=== PATIENT | male | born 1960 | race Caucasian/White ===

== ENCOUNTER 2017-05-18 13:32 | Observation (INO) ==
[2017-05-18] MEDS ORDERED: HYDROmorphone HCL 1 MG/ML DISP.SYRIN IV ONE ×3 (13:37→16:58)
[2017-05-18] MEDS ORDERED: RINGER'S SOLUTION,LACTATED 1,000 ML IV ONE (13:37)
[2017-05-18] MEDS ORDERED: ONDANSETRON HCL/PF 2 MG/ML VIAL IV ONE (13:37)
[2017-05-18] MEDS ORDERED: HYDROmorphone HCL 2 MG/ML VIAL ONE ×2 (13:40→17:02)
[2017-05-18] MEDS ORDERED: ONDANSETRON HCL/PF 2 MG/ML VIAL ONE (13:40)
[2017-05-18 13:52] LABS: Hematocrit 43.9 % (42.0-52.0); Mean Cell Volume 89.6 fl (78-100); Mean Corpuscular Hemoglobin 30.6 pg (27-31); Mean Corpuscular Hgb Conc 34.2 g/dl (32-36); Mean Platelet Volume 9.2 fl (6.0-9.5); Neutrophil # 4.2 K/mm3 (1.3-6.0); Neutrophil % 50.3 % (42-75.0); Platelet Count 255 K/mm3 (150-450); Red Cell Distribution Width 14.6 % (11.5-14.0); White Blood Count 8.4 K/mm3 (4.0-10.5)
[2017-05-18 14:04] LABS: Albumin * 4.2 gm/dl (3.4-5.0); Anion Gap 18.6 mmol/L (6.8-13.8); BUN/Creatinine Ratio 13.6 (9.0-21.6); Bilirubin, Total 0.5 mg/dL (0.0-1.1); Ca. Corrected For Albumin 9.2 mg/dL (8.4-10.2); Calcium * 9.7 mg/dL (7.9-10.9); Carbon Dioxide 21.9 mmol/L (24-32.6); Potassium 3.5 mmol/L (3.4-4.6); Total Protein 8.1 gm/dL (6.2-8.2)
[2017-05-18] MEDS ORDERED: KETOROLAC TROMETHAMINE 30 MG/ML VIAL IV ONE (14:16)
[2017-05-18] MEDS ORDERED: KETOROLAC TROMETHAMINE 30 MG/ML VIAL ONE (14:28)
[2017-05-18 15:19] LABS: Urine Bilirubin Negative (NEGATIVE); Urine Ketone 15 mg/dL (NEGATIVE); Urine Nitrite Negative (NEGATIVE); Urine Protein Negative (NEGATIVE); Urine Specific Gravity 1.015 SP.GR. (1.005-1.030); Urine Urobilinogen Normal (NORMAL)
[2017-05-18 15:34] LABS: Urine Appearance Clear (CLEAR); Urine Bacteria TRACE; Urine Blood 5 /ul (NEGATIVE); Urine Color Yellow; Urine RBC TRACE /hpf (0-5); Urine WBC None Seen /hpf (0-5)
--- NOTE | 2017-05-18 15:42 | ERNOTE ---
Abdominal HPI - Narrative Date of Service: 05/18/17 - General Chief Complaint: Abdominal Pain Time Seen by Provider: 05/18/17 13:36 Source: patient, RN notes reviewed Exam Limitations: clinical condition - Immun/Allergies/Home Medications Immunizatons: IMMUNIZATION HX History of Influenza Vaccine Yes Hx Pneumococcal Vaccination Yes Allergies/Adverse Reactions: Allergies Penicillins Allergy (Severe, Verified 05/18/17 13:42) latex Allergy (Verified 05/18/17 13:43) Hives Home Medications: HOME MEDICATIONS Aspirin [Aspir 81] 81 mg PO DAILY 03/18/12 [Last Taken 05/17/17 21:00] Metoprolol Succinate 50 mg PO DAILY 03/18/12 [Last Taken 05/17/17 21:00] Multivitamin [Multivitamins] 1 each PO DAILY 03/18/12 [Last Taken 05/17/17 21:00 ] Simvastatin [Zocor] 20 mg PO HS 03/18/12 [Last Taken 05/17/17 21:00] Pantoprazole Sodium [Protonix] 40 mg PO DAILY 04/06/14 [Last Taken 05/17/17 21: 00] Felodipine [Felodipine ER] 50 mg PO DAILY 02/23/15 [Last Taken 05/17/17 21:00] Amitriptyline HCl [Elavil] 25 mg PO HS 05/18/17 [Last Taken 05/17/17 21:00] Fluticasone Propionate [Flovent Diskus] 50 mcg IH DAILY 05/18/17 [Last Taken 21:00] lamoTRIgine [Lamictal] 100 mg PO DAILY 05/18/17 [Last Taken 05/17/17 21:00] - History of Present Illness Narrative: Faheem is a 57 year old male brought to the ED by ambulance for left flank pain that began approximately an hour ago. He had just had a bowel movement, when he abruptly began having pain. He attempted to drive himself here, but had to fur puller and call an ambulance. He was well prior to the onset of the pain and denies having anything similar to this in the past. He believes he has a kidney stone. He also reports feeling bloated and nauseous. He denies dysuria or hematuria. He has no prior history of renal calculi. He reports that his stool was hard today, and that he has been constipated for a few days. Date (Duration): 05/18/17 Time (Timing): 12:30 Timing: constant, getting worse Quality: severe Modifying Factors - (Improves): Absent: defecating, rest, lying down, sitting up , urinating Modifying Factors - (Worsens): Present: sitting up, movement Prior Abdominal Problems: Absent: recent trauma, similar symptoms Review of Systems - Review of Systems Constitutional: Absent: recent illness, fever, chills EYE: Present: no symptoms reported ENT: Present: no symptoms reported Respiratory: Absent: shortness of breath, cough Cardiology: Absent: chest pain, syncope, edema Gastrointestinal/Abdominal: Present: nausea, constipation. Absent: vomiting, diarrhea, abdominal pain Genitourinary: Absent: frequency, dysuria, hematuria, decreased urinary output Musculoskeletal: Present: back pain. Absent: joint pain Skin: Absent: rash, lesions Neurological: Absent: weakness, numbness, tingling Endocrine: Present: no symptoms reported Hematologic/Lymphatic: Absent: easy bruising, easy bleeding Psych: Absent: anxiety, depressed - Patient's Past Medical History Patient History - Medical: Depression, GERD, Obesity Patient History - Cardiac/Respiratory: Hypertension, Hyperlipidemia, CPAP/BiPAP Home Use, Sleep Apnea Patient History - Cancer: No Hx of Cancer Patient History - Surgical Procedures: Colonoscopy, EGD, Hernia Repair Patient History - Other: None - Family History Mother Family History - Medical: History Unknown Father Family History - Medical: History Unknown - Social History Living Situations: home Abuse History: No History of abuse Psych History: Hx of Depression, Current tx/ever been on anti-depressants or anti-anxiety meds Smoking Status: Never smoker Alcohol Use: none Drug Use: none - Immunizations Hx Pneumococcal Vaccination: Yes History of Influenza Vaccine: Yes Physical Exam - Physical Exam General Appearance: Present: alert, severe distress, obese Head Exam: Present: normal inspection, no evidence of injury Eye Exam: Normal inspection: bilateral Neck: Present: normal inspection, nontender, supple Respiratory: Present: no respiratory distress, normal breath sounds, no accessory muscle use, lungs clear Cardiovascular/Chest: Present: regular rate, rhythm, no murmur, normal peripheral pulses Gastrointestinal/Abdominal: Present: normal bowel sounds, nontender, distended - firm, obese. Absent: guarding, rebound, mass Back Exam: Present: CVA tenderness (L) - severe. Absent: CVA tenderness (R) Extremity Exam: Present: normal inspection, no edema Neurological Exam: Present: alert, oriented, normal mood/affect, no motor/ sensory deficits Skin Exam: Present: normal color, diaphoresis ED Progress - Results and Orders Patient's Lab Results:: I have reviewed the patient's lab results. - Vital Signs Patient's Vital Signs:: I have reviewed the patient's vital signs. Vital Signs: Vital Signs 05/18/17 05/18/17 05/18/17 13:37 13:40 14:22 Temperature 37.3 C 37.3 C Pulse Rate 75 75 68 Respiratory 19 19 11 L Rate Blood Pressure 180/104 180/104 172/100 O2 Sat by Pulse 100 100 93 Oximetry - X-Ray X-Ray #1 X-Ray: abdomen Interpretation: Reviewed by me X-ray Comments: Nonobstructive bowel gas pattern, no free air - CT/Ultrasound CT/Ultrasound Narrative: Stone protocol CT: IMPRESSION: 1. Left distal ureteral/ureterovesical junction calcification (5.8 mm ), causing left-sided obstructive uropathy. 2. Additional bilateral intrarenal calcifications as above. 3. Indeterminate bilateral low density renal lesions, statistically cysts, but further evaluation by routine renal ultrasound recommended. If the patient has any prior outside CT or ultrasound imaging, direct comparisons would be beneficial prior to additional imaging. 4. Prostate enlargement. Additional comments and limitations are as above. Electronically signed by Romana De Oliveira M.D.. - Progress/Reassessment Chief Complaint: Abdominal Pain Progress:: Improved Plan - Plan Plan: Dr. Tapia contacted and patient will be admitted to observation status for pain control and a urology consult. Dr. Quiñonez notified, plans to see patient when he is here tomorrow morning. Patient is to be NPO after midnight. Departure Clinical Impression: Left ureteral calculus, Hydronephrosis due to obstruction of ureter - Departure Disposition: Still a patient Condition: Stable
[2017-05-18] MEDS: RINGER'S SOLUTION,LACTATED 1,000 ML IV PRN (17:39)
[2017-05-18] MEDS ORDERED: BUDESONIDE 0.5 MG/2 ML VIAL.NEB IH SCH (20:30)
--- NOTE | 2017-05-18 20:42 | HP ---
Chief Complaint - Chief Complaint Date of Service: 05/18/17 Time of Service: 20:39 Chief Complaint: left flank pain History of Present Illness: Mr Todd a 57 years old white male adm to the hospital with reports of sudden onset of left flank pain that began today. pt stated he had a bowel movement and then he suddenly felt the pain that caused him to bend over. He was having persistent need to void and was urinating only a small amount. He eventually was able to urinate despite the persisted pain, then felt comfortable to drive himself to the ER. The pain was getting progressively worse during his drive, so he stopped and called EMS. In ER CT ABD/Pelvis : Left distal ureteral/ ureterovesical junction calcification (5.8 mm), causing left-sided obstructive uropathy.Additional bilateral intrarenal calcifications.Indeterminate bilateral low density renal lesions, statistically cysts, but further evaluation by routine renal ultrasound recommended.Prostate enlargement. He was initiated on IVF, pain medications and adm to the service with urology consult. Spoke with Dr. Quiñonez, with plans to follow up with patient. Strain all urine, keep NPO and pit is unable to pass stone. Possible surgical interventions tomorrow. On assessment he denies persistent need to urinate, fever, chills, palpitation, chest pain. RCRI 0.4% risk for major cardiac event.Pt is appropriate for potential planned procedure. PMH significant for sleep apnea, hypertension, HDL and obesity. Plan of care discussed with pt he verbalized understanding and agrees. - Patient's Past Medical History Patient History - Medical: Depression, GERD, Obesity Patient History - Cardiac/Respiratory: Hypertension, Hyperlipidemia, CPAP/BiPAP Home Use, Sleep Apnea Patient History - Cancer: No Hx of Cancer Patient History - Surgical Procedures: Colonoscopy, EGD, Hernia Repair Patient History - Other: None - Family History Mother Family History - Medical: History Unknown, Other - pt is adopted Family History - Cardiac/Respiratory: History Unknown Family History - Cancer: History Unknown Father Family History - Medical: History Unknown Family History - Cardiac/Respiratory: History Unknown Family History - Cancer: History Unknown - Social History Living Situations: alone Abuse History: No History of abuse Psych History: Hx of Depression, Current tx/ever been on anti-depressants or anti-anxiety meds Smoking Status: Never smoker Have you smoked in the past 12 months: No Alcohol Use: none Drug Use: none - Immunizations Hx Pneumococcal Vaccination: Yes History of Influenza Vaccine: Yes Review Of Systems (GEN) - Review of Systems Generalized/Overall Review: Present: No Symptoms Reported EENTM: Present: No Symptoms Reported Respiratory: Present: No Symptoms Reported Cardiac: Present: No Symptoms Reported Abdominal: Present: No Symptoms Reported Genitourinary: Present: Urgency, Hesitancy Musculoskeletal: Present: No Symptoms Reported Neurological: Present: No Symptoms Reported Skin: Present: No Symptoms Reported Endocrine: Present: No Symptoms Reported Immunizations: IMMUNIZATION HX History of Influenza Vaccine Yes Hx Pneumococcal Vaccination Yes Allergies/Adverse Reactions: Allergies Allergy/AdvReac Type Severity Reaction Status Date / Time Penicillins Allergy Severe Verified 05/18/17 13:42 latex Allergy Hives Verified 05/18/17 13:43 Home Medications: HOME MEDICATIONS Aspirin [Aspir 81] 81 mg PO DAILY 03/18/12 [Last Taken 05/17/17 21:00] Metoprolol Succinate 50 mg PO DAILY 03/18/12 [Last Taken 05/17/17 21:00] Multivitamin [Multivitamins] 1 each PO DAILY 03/18/12 [Last Taken 05/17/17 21:00 ] Simvastatin [Zocor] 20 mg PO HS 03/18/12 [Last Taken 05/17/17 21:00] Pantoprazole Sodium [Protonix] 40 mg PO DAILY 04/06/14 [Last Taken 05/17/17 21: 00] Felodipine [Felodipine ER] 50 mg PO DAILY 02/23/15 [Last Taken 05/17/17 21:00] Amitriptyline HCl [Elavil] 25 mg PO HS 05/18/17 [Last Taken 05/17/17 21:00] Fluticasone Propionate [Flovent Diskus] 50 mcg IH DAILY 05/18/17 [Last Taken 21:00] lamoTRIgine [Lamictal] 100 mg PO DAILY 05/18/17 [Last Taken 05/17/17 21:00] Exam - Exam Vital Signs: Vital Signs - Last Taken Temp 36.5 C 05/18/17 17:18 Pulse 98 05/18/17 17:18 Resp 20 05/18/17 17:18 BP 151/101 05/18/17 17:18 Pulse Ox 95 05/18/17 17:09 Constitutional: Present: Alert, Oriented x3, Cooperative, No distress ENT Exam: Present: hearing grossly normal Eye Exam: bilateral eye: normal inspection Neck: Present: full range of motion Back Exam: Present: CVA tenderness (L) Breasts: Present: Exam deferred Respiratory: Present: chest non-tender, lungs clear, normal breath sounds, no respiratory distress Cardiovascular/Chest: Present: normal peripheral pulses, regular rate, rhythm, no chest tenderness, no edema Peripheral Pulses: dorsalis-pedis (R): 2+, dorsalis-pedis (L): 2+ Abdomen: Present: Normal bowel sounds, soft, nontender, nondistended, no rebound tenderness /Rectal: Present: Exam deferred Extremity: Present: normal range of motion, non-tender, normal inspection, no calf tenderness Skin Exam: Present: normal color, warm/dry Lymphatic: Present: no adenopathy Neurologic: Present: normal mood/affect, oriented x 3 Appearance: Present: appropriate appearance, appropriate insight Eye contact: Present: cooperative, good eye contact Thoughts: Present: normal thought pattern Diagnostic Studies: Laboratory Results WBC 8.4 K/mm3 (4.0-10.5) 05/18/17 13:50 RBC 4.90 M/mm3 (4.7-6.0) 05/18/17 13:50 Hgb 15.0 gm/dL (13.5-18.0) 05/18/17 13:50 Hct 43.9 % (42.0-52.0) 05/18/17 13:50 MCV 89.6 fl (78-100) 05/18/17 13:50 MCH 30.6 pg (27-31) 05/18/17 13:50 MCHC 34.2 g/dl (32-36) 05/18/17 13:50 RDW 14.6 % (11.5-14.0) H 05/18/17 13:50 Plt Count 255 K/mm3 (150-450) 05/18/17 13:50 MPV 9.2 fl (6.0-9.5) 05/18/17 13:50 Immature Gran % (Auto) 0.10 % (0.001-0.429) 05/18/17 13:50 Immature Gran # (Auto) 0.01 K/mm3 (0.000-0.0310) 05/18/17 13:50 Neutrophils % 50.3 % (42-75.0) 05/18/17 13:50 Lymphocytes % 34.1 % (20-51) 05/18/17 13:50 Monocytes % 11.7 % (0.0-9) H 05/18/17 13:50 Eosinophils % 3.3 % (0.0-3.0) H 05/18/17 13:50 Basophils % 0.5 % (0.0-1.0) 05/18/17 13:50 Nucleated RBC % 0.0 k/mm3 (0-1) 05/18/17 13:50 Neutrophils # 4.2 K/mm3 (1.3-6.0) 05/18/17 13:50 Lymphocytes # 2.85 k/mm3 (1.5-3.5) 05/18/17 13:50 Monocytes # 1.0 k/mm3 (0.0-1.0) 05/18/17 13:50 Eosinophils # 0.3 k/mm3 (0.0-0.7) 05/18/17 13:50 Absolute Basophils 0.0 k/mm3 (0.0-0.1) 05/18/17 13:50 Sodium 138 mmol/L (132-142) 05/18/17 13:50 Plasma Sodium 138 mmol/L (130-142) 05/18/17 13:50 Potassium 3.5 mmol/L (3.4-4.6) 05/18/17 13:50 Chloride 101 mmol/L (97-106) 05/18/17 13:50 Carbon Dioxide 21.9 mmol/L (24-32.6) L 05/18/17 13:50 Anion Gap 18.6 mmol/L (6.8-13.8) H 05/18/17 13:50 BUN 16 mg/dL (6-23) 05/18/17 13:50 Creatinine 1.18 mg/dL (0.4-1.4) 05/18/17 13:50 Est GFR (Non-Af Amer) 68 mL/min (60-130) D 05/18/17 13:50 BUN/Creatinine Ratio 13.6 (9.0-21.6) 05/18/17 13:50 Random Glucose 115 mg/dL (70-110) H 05/18/17 13:50 Calcium 9.7 mg/dL (7.9-10.9) 05/18/17 13:50 Calcium Adj for Albumin 9.2 mg/dL (8.4-10.2) 05/18/17 13:50 Total Bilirubin 0.5 mg/dL (0.0-1.1) 05/18/17 13:50 AST 22 U/L (0-48) 05/18/17 13:50 ALT 47 U/L (19-67) 05/18/17 13:50 Alkaline Phosphatase 118 U/L (50-170) 05/18/17 13:50 Total Protein 8.1 gm/dL (6.2-8.2) 05/18/17 13:50 Albumin 4.2 gm/dl (3.4-5.0) 05/18/17 13:50 Urine Color Yellow 05/18/17 15:13 Urine Appearance Clear (CLEAR) 05/18/17 15:13 Urine pH 8.0 pH (5.0-7.0) H 05/18/17 15:13 Ur Specific [place] 1.015 SP.GR. (1.005-1.030) 05/18/17 15:13 Urine Protein Negative mg/dL (NEGATIVE) 05/18/17 15:13 Urine Glucose (UA) Negative mg/dL (NEGATIVE) 05/18/17 15:13 Urine Ketones 15 mg/dL (NEGATIVE) 05/18/17 15:13 Urine Blood 5 /ul (NEGATIVE) H 05/18/17 15:13 Urine Nitrate Negative (NEGATIVE) 05/18/17 15:13 Urine Bilirubin Negative mg/dl (NEGATIVE) 05/18/17 15:13 Urine Urobilinogen Normal EU/dl (NORMAL) 05/18/17 15:13 Ur Leukocyte Esterase Negative /ul (NEGATIVE) 05/18/17 15:13 Urine RBC Trace /hpf (0-5) 05/18/17 15:13 Urine WBC None seen /hpf (0-5) 05/18/17 15:13 Ur Epithelial Cells None seen /hpf (0-5) 05/18/17 15:13 Urine Bacteria Trace (NONE) 05/18/17 15:13 Urine Culture Comments No culture indicated 05/18/17 15:13 CT ABD? pelvis: Left distal ureteral/ureterovesical junction calcification (5.8 mm), causing left-sided obstructive uropathy. 2. Additional bilateral intrarenal calcifications as above. 3. Indeterminate bilateral low density renal lesions, statistically cysts, but further evaluation by routine renal ultrasound recommended. If the patient has any prior outside CT or ultrasound imaging, direct comparisons would be beneficial prior to additional imaging. 4. Prostate enlargement. Assessment/Plan - Narrative Narrative: Left ureteral calculus pt report sudden onset of left flank pain non radiating, with persistent need to void CT ABD/Pelvis: Left distal ureteral/ureterovesical junction calcification ( 5.8 mm), causing left-sided obstructive uropathy. Strain all urines and if pt pass stone sent to lab, otherwise anticipate surgical intervention Keep NPO and continue with IVF hydration Urology consulted and aware, plan to follow up with pt tomorrow. IV Dilaudid for pain control and Zofran for nausea. Hydronephrosis- due to obstruction of ureter Continue with IVF Plan same as #1 Prostate enlargement. Incidental findings seen on CT ABD/Pelvis Chronic conditions- stable Hypertension Hyperlipidemia Sleep apnea- resume home cpap Code status: Full GI ppx: Protonix VTE ppx: SCD and ambulate Time 38 minutes and case discussed with Dr Tapia - Assessment/Plan (1) Hydronephrosis due to obstruction of ureter Problem: Acute (2) Left ureteral calculus Problem: Acute (3) Sleep apnea Problem: Chronic (4) Morbid obesity Problem: Chronic (5) Hyperlipidemia Problem: Chronic (6) Hypertension Problem: Chronic
[2017-05-18] MEDS ORDERED: HYDROmorphone HCL 1 MG/ML DISP.SYRIN IV PRN (20:58)
[2017-05-18] MEDS ORDERED: SIMVASTATIN 20 MG TABLET PO SCH (21:00)
[2017-05-18] MEDS ORDERED: AMITRIPTYLINE HCL 25 MG TABLET PO SCH (21:00)
[2017-05-18] MEDS ORDERED: lamoTRIgine 100 MG TABLET PO SCH (21:30)
[2017-05-18] MEDS ORDERED: MULTIVITAMINS 1 CAP CAPSULE PO SCH (21:30)
[2017-05-18] MEDS ORDERED: FELODIPINE 5 MG TAB.SR.24H PO SCH (21:30)
[2017-05-18] MEDS ORDERED: PANTOPRAZOLE SODIUM 40 MG TABLET.EC PO SCH (21:30)
[2017-05-18] MEDS ORDERED: METOPROLOL SUCCINATE 25 MG TABLET.SA PO SCH (21:30)
[2017-05-18] MEDS ORDERED: METOPROLOL SUCCINATE 50 MG TABLET.SA PO ONE (22:08)
[2017-05-19] MEDS ORDERED: HYDROmorphone HCL 2 MG/ML VIAL ONE (01:15)
[2017-05-19] MEDS: RINGER'S SOLUTION,LACTATED 1,000 ML IV PRN ×2 (01:19→08:56)
--- NOTE | 2017-05-19 06:18 | PN ---
Subjective - Date and Time Seen Date: 05/19/17 Time: 06:15 Subjective Narrative: patient seen today AOX3 no acute distress, pt stated when he lay on the left side he feels the pain, otherwise overnight he need pain medication once. he strained all urine overnight and no stones kasey observed. Objective - Review of Systems Generalized/Overall Review: Reports: No Symptoms Reported EENTM: Reports: No Symptoms Reported Respiratory: Reports: No Symptoms Reported Cardiac: Reports: No Symptoms Reported Abdominal: Reports: No Symptoms Reported Genitourinary Symptoms: Reports: Hesitancy Musculoskeletal Complaints: Reports: Other - right flank pain Neurological: Reports: No Symptoms Reported Skin: Reports: No Symptoms Reported Endocrine: Reports: No Symptoms Reported - Vitals Vitals: Last Vital Signs Temp 36.6 C 05/18/17 22:10 Pulse 77 05/19/17 04:45 Resp 18 05/19/17 04:45 BP 138/95 05/18/17 22:19 Pulse Ox 92 05/19/17 04:45 - Exam Constitutional: Present: Alert, Oriented x3, Cooperative, No distress ENT Exam: Present: hearing grossly normal Neck: Present: non-tender, full range of motion Breasts: Present: Exam deferred Respiratory: Present: chest non-tender, lungs clear, normal breath sounds, no respiratory distress Cardiovascular/Chest: Present: normal peripheral pulses, regular rate, rhythm, no chest tenderness, no edema Abdomen: Present: Normal bowel sounds, nontender, nondistended, no rebound tenderness /Rectal: Present: Exam deferred Extremity: Present: normal range of motion, non-tender, normal inspection, no pedal edema, no calf tenderness Skin Exam: Present: normal color, warm/dry Neurologic: Present: normal mood/affect, oriented x 3 Appearance: Present: appropriate appearance Eye contact: Present: cooperative, good eye contact Thoughts: Present: normal thought pattern, no apparent hallucination Assessment/Plan Plan Narrative: Hydronephrosis- due to obstruction of ureter Continue with IVF Prostate enlargement. Incidental findings seen on CT ABD/Pelvis Left ureteral calculus pt report sudden onset of left flank pain non radiating, with persistent need to void CT ABD/Pelvis: Left distal ureteral/ureterovesical junction calcification ( 5.8 mm), causing left-sided obstructive uropathy. Strain all urines and if pt pass stone sent to lab, otherwise anticipate surgical intervention Keep NPO and continue with IVF hydration Urology consulted and aware, plan to follow up with pt today IV Dilaudid for pain control and Zofran for nausea. Chronic conditions- stable Hypertension Hyperlipidemia Sleep apnea- resume home cpap Code status: Full GI ppx: Protonix VTE ppx: SCD and ambulate Time 20 minutes and case discussed with Dr Tapia - Problems/Diagnosis (1) Hydronephrosis due to obstruction of ureter Problem: Acute (2) Left ureteral calculus Problem: Acute (3) Sleep apnea Problem: Chronic (4) Morbid obesity Problem: Chronic (5) Hyperlipidemia Problem: Chronic (6) Hypertension Problem: Chronic
[2017-05-19] MEDS ORDERED: HYDROmorphone HCL 2 MG/ML VIAL IV PRN (06:25)
[2017-05-19] MEDS ORDERED: MORPHINE SULFATE 2 MG/ML DISP.SYRIN IV PRN (06:35)
[2017-05-19] MEDS ORDERED: KETOROLAC TROMETHAMINE 30 MG/ML VIAL IV PRN (08:08)
--- NOTE | 2017-05-19 08:19 | CONS ---
[facility] - General Date of Service: 05/19/17 Source: patient - History of Present Illness Initial Comments: 57 yo previously healthy patient presented to the ER yesterday with severe left flank pain and nausea. He underwent a stone protocol CT scan and I reviewed the report and images. He has a 6 mm left UVJ stone with moderate hydro. He does have a nonobstructing lower pole stone about 6 mm in size on the left side. No stones on the right side. Labs look normal. Admitted for pain control. No prior stone episodes. He is in pretty severe pain still this morning and has been straining the urine and hasn't passed the stone. No other medical problems. Timing/Duration: 24 hours Associated Symptoms: denies symptoms Allergies/Adverse Reactions: Allergies Penicillins Allergy (Severe, Verified 05/18/17 13:42) latex Allergy (Verified 05/18/17 13:43) Hives Home Medications: Home Medications Medication Instructions Recorded Last Taken Aspirin [Aspir 81] 81 mg PO DAILY 03/18/12 05/17/17 21:00 Metoprolol Succinate 50 mg PO DAILY 03/18/12 05/17/17 21:00 Multivitamin [Multivitamins] 1 each PO DAILY 03/18/12 05/17/17 21:00 Simvastatin [Zocor] 20 mg PO HS 03/18/12 05/17/17 21:00 Pantoprazole Sodium [Protonix] 40 mg PO DAILY 04/06/14 05/17/17 21:00 Felodipine [Felodipine ER] 10 mg PO DAILY 02/23/15 05/17/17 21:00 Amitriptyline HCl [Elavil] 25 mg PO HS 05/18/17 05/17/17 21:00 Fluticasone Propionate [Flovent 50 mcg IH DAILY 05/18/17 05/17/17 21:00 Diskus] lamoTRIgine [Lamictal] 100 mg PO DAILY 05/18/17 05/17/17 21:00 - Patient's Past Medical History Patient History - Medical: Depression, GERD, Obesity Patient History - Cardiac/Respiratory: Hypertension, Hyperlipidemia, CPAP/BiPAP Home Use, Sleep Apnea Patient History - Cancer: No Hx of Cancer Patient History - Surgical Procedures: Colonoscopy, EGD, Hernia Repair Patient History - Other: None - Family History Family History:: no untoward family reactions to anesthesia - Family History Mother Family History - Medical: History Unknown, Other - pt is adopted Family History - Cardiac/Respiratory: History Unknown Family History - Cancer: History Unknown Father Family History - Medical: History Unknown Family History - Cardiac/Respiratory: History Unknown Family History - Cancer: History Unknown - Social History Living Situations: alone Abuse History: No History of abuse Psych History: Hx of Depression, Current tx/ever been on anti-depressants or anti-anxiety meds Smoking Status: Never smoker Have you smoked in the past 12 months: No Alcohol Use: none Drug Use: none - Immunizations Hx Pneumococcal Vaccination: Yes History of Influenza Vaccine: Yes Procedures ENDOSCOP DILATE PYLORUS (03/29/07) ENDOSCOPIC BIOPSY OF RECTUM (03/29/07) ESOPHAGOGASTRODUODENOSCOPY [EGD] W/CLOSED BIOPSY (07/27/11) OTHER EXCISION, FUSION, AND REPAIR OF TOES (11/07/11) OTHER OPEN UMBILICAL HERNIORRHAPHY (03/17/05) Medications - Medications Current Medications: Current Medications Amitriptyline HCl (Elavil) 25 mg PO HS ASHLEY Stop: 06/17/17 21:01 Last Admin: 05/18/17 22:18 Dose: 25 mg Felodipine (Plendil) 10 mg PO HS ASHLEY Stop: 06/17/17 21:31 Last Admin: 05/18/17 22:17 Dose: Not Given Lactated Ringer's (Lactated Ringers) 1,000 mls @ 125 mls/hr IV .Q8H PRN PRN Reason: HYDRATION Stop: 06/17/17 17:32 Last Admin: 05/19/17 01:19 Dose: 125 mls/hr Lamotrigine (Lamictal) 100 mg PO HS ASHLEY Stop: 06/17/17 21:31 Last Admin: 05/18/17 22:18 Dose: 100 mg Morphine Sulfate (Morphine Sulfate) 0.5 mg IV Q4H PRN PRN Reason: Pain Stop: 06/18/17 06:36 Last Admin: 05/19/17 07:44 Dose: 0.5 mg Multivitamins/Folic Acid (Multivitamin Bere) 1 cap PO HS ASHLEY Stop: 06/17/17 21:31 Last Admin: 05/18/17 22:17 Dose: Not Given Pantoprazole Sodium (Protonix) 40 mg PO HS ASHLEY Stop: 06/17/17 21:31 Last Admin: 05/18/17 22:18 Dose: 40 mg Simvastatin (Zocor) 20 mg PO HS ASHLEY Stop: 06/17/17 21:01 Last Admin: 05/18/17 22:18 Dose: 20 mg Review of Systems - Review of Systems Generalized/Overall Review: Present: No Symptoms Reported EENTM: Present: No Symptoms Reported Respiratory: Present: No Symptoms Reported Cardiac: Present: No Symptoms Reported Abdominal: Present: Nausea Genitourinary: Present: No Symptoms Reported Musculoskeletal: Present: Back Pain Neurological: Present: No Symptoms Reported Skin: Present: No Symptoms Reported Endocrine: Present: No Symptoms Reported Physical Examination - Exam Vital Signs: Vital Signs - Last Taken Temp 98.4 F 05/19/17 07:49 Pulse 82 05/19/17 07:49 Resp 16 05/19/17 07:49 BP 135/92 05/19/17 07:49 Pulse Ox 94 05/19/17 07:49 O2 Oxygen Delivery Method Room Air Constitutional: Present: Alert, Oriented x3, Cooperative, Well developed, Well nourished ENT Exam: Present: hearing grossly normal Neck: Present: non-tender, full range of motion Respiratory: Present: chest non-tender, lungs clear, normal breath sounds Cardiovascular/Chest: Present: normal peripheral pulses, regular rate, rhythm, no edema Abdomen: Present: soft, nontender, nondistended /Rectal: Present: External genitalia normal Extremity: Present: normal range of motion Skin Exam: Present: normal color, warm/dry, no cyanosis Neurologic: Present: no motor/sensory deficits, oriented x 3 Appearance: Present: appropriate appearance Eye contact: Present: cooperative, good eye contact Thoughts: Present: normal thought pattern - Results and Findings: Narrative: Patient has a sizeable left ureteral stone and kidney stone. He is in a lot of pain this morning. Wishes to proceed with surgery. I will add him on for cysto , left RGP, ureteroscopy and possible laser with possible stent. Understands small risk of injury to the ureter and the stent can cause pain and irritation. - Assessments/Findings (1) Left ureteral calculus Problem: Acute
[2017-05-19] MEDS ORDERED: RINGER'S SOLUTION,LACTATED 500 ML IV ONE (12:40)
[2017-05-19] MEDS ORDERED: ceFAZolin SODIUM 1 GM VIAL IV ONE (12:55)
[2017-05-19] MEDS ORDERED: RINGER'S SOLUTION,LACTATED 1,000 ML IV ONE (13:24)
--- NOTE | 2017-05-19 15:09 | DS ---
(1) Hydronephrosis due to obstruction of ureter Problem: Acute (2) Left ureteral calculus Problem: Acute Description of Stay: Faheem is a 57 yo male that presented to the [facility] ER with left sided flank pain. CT of the abdomen showed 5.8mm stone with hydronephrosis. He was admitted for pain control and urology was consulted for treatment. On 05/19/17 he underwent cystoscopy with laser lithotripsy and stent placement. His symptoms improved and he was able to be discharged to home following procedure. He was prescribed medications per urology. Procedures Performed: see notes below List Procedures: 05/19/17 - Left ureteroscopy with laser lithotripsy and stent placement Discharge Location: Home Discharge Location: Home Disposition: Home self-care Condition: Stable Discharge Activity: Activity as tolerated Discharge Diet: General/regular food Referrals: Madhu Quiñonez MD [Associate] - (Surgery next Monday for stent removal. OR to call .) Problem Oriented Discharge Instructions to Patient/Family: Kidney Stones, Easy- to-Read, Lithotripsy, Care After Additional Patient Instructions (free text): Follow up next week for surgery. OR will contact you by at the latest to let you know what time to be in outpatient surgery and with further instructions. Any questions or concerns contact Dr. Quiñonez at Prescriptions (Any new or edited meds): Ciprofloxacin HCl [Cipro] 250 mg PO BID #6 tablet Docusate Sodium [Colace] 100 mg PO BID PRN #30 cap PRN Reason: Constipation HYDROcodone/ACETAMINOPHEN [[place] 5-325] 1 each PO Q6H PRN #25 tablet PRN Reason: Pain Oxybutynin Chloride [Ditropan] 5 mg PO TID PRN #15 tab PRN Reason: Bladder Spasms Complete Home Medications List: Complete Home Medication List: Aspirin [Aspir 81] 81 mg PO DAILY 03/18/12 Metoprolol Succinate 50 mg PO DAILY 03/18/12 Multivitamin [Multivitamins] 1 each PO DAILY 03/18/12 Simvastatin [Zocor] 20 mg PO HS 03/18/12 Pantoprazole Sodium [Protonix] 40 mg PO DAILY 04/06/14 Felodipine [Felodipine ER] 10 mg PO DAILY 02/23/15 Amitriptyline HCl [Elavil] 25 mg PO HS 05/18/17 Fluticasone Propionate [Flovent Diskus] 50 mcg IH DAILY 05/18/17 lamoTRIgine [Lamictal] 100 mg PO DAILY 05/18/17 Ciprofloxacin HCl [Cipro] 250 mg PO BID #6 tablet 05/19/17 Docusate Sodium [Colace] 100 mg PO BID PRN #30 cap 05/19/17 HYDROcodone/ACETAMINOPHEN [[place] 5-325] 1 each PO Q6H PRN #25 tablet 05/19/17 Oxybutynin Chloride [Ditropan] 5 mg PO TID PRN #15 tab 05/19/17
[2017-05-19 17:44] VITALS: BP 131/86
[2017-05-19] MEDS ORDERED: METOPROLOL SUCCINATE 50 MG TABLET.SA PO SCH (21:00)
[2017-05-23 22:46] LABS: Stone Composition 2 DNR
== END 2017-05-19 17:45 | disposition home or self-care (01) ==
LOC: ER 13:32 → MS 17:10
PROVIDERS: ADMIT Internal Medicine; ATTEND Family Medicine
DX: E78.5 Hyperlipidemia, unspecified; Z68.36 Body mass index [BMI] 36.0-36.9, adult; I10 Essential (primary) hypertension; G47.30 Sleep apnea, unspecified; E66.01 Morbid (severe) obesity due to excess calories; N13.2 Hydronephrosis with renal and ureteral calculous obstruction
CPT/HCPCS: 36415; 74019; 74020; 74176; 74420; 76000; 80053; 81001; 82365; 85025; 88300; 94660; 96361; 96374; 96375; 96376; 99284; G0378; J2405